=== PATIENT | male | born 1945 | race Caucasian/White ===

== ENCOUNTER → 2018-08-05 | Outpatient (CLI) | payer MEDICARE | LOC: RADMRIMAIN 14:52 | PROVIDERS: ATTEND Orthopaedic Surgery | DX: Z53.9 Procedure and treatment not carried out, unspecified reason (principal) ==

== ENCOUNTER → 2020-05-09 | Outpatient (CLI) | payer MEDICARE ==
[2020-05-09 19:19] LABS: Chol/HDL Ratio 3.23
[2020-05-09 23:57] LABS: Microalbumin Creatinine Ratio <30 mg/g Creat (0-30); Urine Creatinine 79.5 mg/dL
== END | disposition home or self-care (01) ==
LOC: LABWHC1 14:08
PROVIDERS: ATTEND Internal Medicine
DX: E11.65 Type 2 diabetes mellitus with hyperglycemia (principal); E03.9 Hypothyroidism, unspecified; E55.9 Vitamin D deficiency, unspecified
CPT/HCPCS: 36415; 80061; 82043; 82306; 82570; 83036; 84439; 84443

== ENCOUNTER 2022-07-01 09:07 | Emergency (ER) | payer MEDICARE ==
[2022-07-01 09:21] VITALS: RESP 18; TEMP 97.8
[2022-07-01] MEDS ORDERED: HYDROcodone/APAP 5-325MG 1 EACH TAB PO STA (09:33)
--- NOTE | 2022-07-01 10:31 | XR ---
EXAMINATION TYPE: XR femur LT DATE OF EXAM: 07/01/2022 COMPARISON: NONE HISTORY: Pain TECHNIQUE: 4 views submitted FINDINGS: Mild axial narrowing of the joint space. There is a moderate to severe arthropathy of the k nee joint with hypertrophic spurring. Vascular calcifications are seen. Osseous structures are intact with no definite acute fracture spurring involving the anterior and upper portions of the patella no barbara. Severe arthropathy patellofemoral joint. Small soft tissue calcification along the distal metaph ysis of the medial margin of the femur. IMPRESSION: 1. Arthropathy with no acute fracture.
--- NOTE | 2022-07-01 10:32 | XR ---
EXAMINATION TYPE: XR tibia fibula LT DATE OF EXAM: 07/01/2022 COMPARISON: NONE HISTORY: Pain TECHNIQUE: Two views are submitted. FINDINGS: The osseous structures are intact. There is narrowing of the patellofemoral joint hypertrophic spurri ng narrowing the medial and lateral compartments knee joint. Vascular calcification seen with no defi nite acute fracture or dislocation. Soft tissue calcifications spurs are seen. IMPRESSION: 1. No acute osseous abnormality.
--- NOTE | 2022-07-01 11:06 | XR ---
EXAMINATION TYPE: XR ankle complete RT DATE OF EXAM: 07/01/2022 COMPARISON: NONE HISTORY: Pain FINDINGS: Three views of the ankle demonstrate the ankle mortise to be intact and symmetric. The joint spaces are preserved. The osseous structures are intact. Calcaneal spurs are noted. Vascular calcification s seen. IMPRESSION: 1. No definite acute fracture or dislocation, if symptoms persist follow-up study in 7 to 10 days wou ld be suggested.
[2022-07-01] MEDS ORDERED: ACET/COD 300 MG/30 MG STARTER PACK 6 TAB BTL PO STA (11:45)
--- NOTE | 2022-07-01 11:47 | ED ---
Fall HPI - General Chief Complaint: Fall Stated Complaint: lt leg injury Time Seen by Provider: 07/01/22 09:22 Source: patient, RN notes reviewed Mode of arrival: ambulatory Limitations: no limitations - History of Present Illness Initial Comments: 77-year-old male presented from for fall, injury. Patient states he was putting up table at cafeteria slid out striking his right leg causing abrasion he complains more of left leg pain, pain from twisting. Patient states he has pain with movement is better at rest. Patient denies any obvious injuries doesn't smoke abrasion to the left knee no head injury no loss conscious. - Related Data Home Medications Medication Instructions Recorded Confirmed Atorvastatin [Lipitor] 40 mg PO HS 07/01/22 07/01/22 Cyanocobalamin (Vitamin B-12) 1,000 mcg PO DAILY 07/01/22 07/01/22 [Vitamin B-12] Empagliflozin [Jardiance] 25 mg PO DAILY 07/01/22 07/01/22 Enalapril [Vasotec] 5 mg PO BID 07/01/22 07/01/22 Insulin Glargine/Lixisenatide 33 units SQ DAILY 07/01/22 07/01/22 [Soliqua 100 Unit-33 Mcg/ml Pen] Insulin Lispro [humaLOG Kwikpen] 10 unit SQ AC-TID 07/01/22 07/01/22 Insulin Lispro [humaLOG Kwikpen] See Protocol SQ AC-TID 07/01/22 07/01/22 Levothyroxine Sodium [Synthroid] 75 mcg PO AC-BRKFST 07/01/22 07/01/22 Montelukast [Singulair] 10 mg PO HS 07/01/22 07/01/22 Pregabalin [Lyrica] 50 mg PO HS 07/01/22 07/01/22 Topiramate [Topamax] 100 mg PO BID 07/01/22 07/01/22 Ubidecarenone [Co Q-10] 300 mg PO DAILY 07/01/22 07/01/22 metFORMIN HCL [Glucophage] 500 mg PO BID 07/01/22 07/01/22 Allergies Allergy/AdvReac Type Severity Reaction Status Date / Time No Known Allergies Allergy Verified 07/01/22 11:38 Review of Systems ROS Statement: Those systems with pertinent positive or pertinent negative responses have been documented in the HPI. ROS Other: All systems not noted in ROS Statement are negative. Past Medical History Past Medical History: Diabetes Mellitus, Hyperlipidemia, Hypertension Past Surgical History: No Surgical Hx Reported Past Psychological History: No Psychological Hx Reported Smoking Status: Never smoker Past Alcohol Use History: None Reported Past Drug Use History: None Reported General Exam Limitations: no limitations General appearance: alert, in no apparent distress Head exam: Present: atraumatic, normocephalic, normal inspection Neck exam: Present: normal inspection, full ROM. Absent: tenderness, meningismus, lymphadenopathy Respiratory exam: Present: normal lung sounds bilaterally. Absent: respiratory distress, wheezes, rales, rhonchi, stridor Cardiovascular Exam: Present: regular rate, normal rhythm, normal heart sounds. Absent: systolic murmur, diastolic murmur, rubs, gallop, clicks Extremities exam: Present: other (Right leg abrasion over the tib-fib region, right ankle swelling and tenderness, left leg tenderness diffusely with abrasion to the left knee pedal pulses including posterior tibialis and dorsal pedis within normal limits and equal bilaterally) Neurological exam: Present: alert, oriented X3, CN II-XII intact, reflexes normal. Absent: motor sensory deficit Skin exam: Present: warm, dry, intact, normal color. Absent: rash Course Vital Signs 07/01/22 09:17 Temperature 97.8 F Pulse Rate 62 Respiratory 18 Rate Blood Pressure 136/67 O2 Sat by Pulse 99 Oximetry Medical Decision Making - Medical Decision Making 77-year-old male presented for complaints of a fall. Patient has a notable abrasion to the right leg tetanus is up-to-date patient x-ray of the right ankle is negative for acute fracture x-ray was obtained of the left femur, tib-fib with no acute abnormality. 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 Patient we discharged with follow-up with orthopedics return parameters were discussed Disposition Clinical Impression: Fall, Abrasion, right lower leg, initial encounter, Right ankle sprain, Left leg pain, Sprain of left knee/leg Disposition: HOME SELF-CARE Condition: Stable Instructions (If sedation given, give patient instructions): Leg Sprain (ED) Additional Instructions: Please return to the Emergency Department if symptoms worsen or any other concerns. Is patient prescribed a controlled substance at d/c from ED?: No Referrals: Jean Claude Lemons MD [Primary Care Provider] - 1-2 days Forrest Ya MD [Medical Doctor] - 1-2 days Time of Disposition: 11:45
[2022-07-01 12:02] VITALS: BP 148/66; PULSE 59
== END 2022-07-01 12:00 | disposition home or self-care (01) ==
LOC: EC 09:07
DX: S93.401A Sprain of unspecified ligament of right ankle, initial encounter (principal); S83.92XA Sprain of unspecified site of left knee, initial encounter; S80.811A Abrasion, right lower leg, initial encounter; E78.5 Hyperlipidemia, unspecified; I10 Essential (primary) hypertension; E11.9 Type 2 diabetes mellitus without complications; Z79.84 Long term (current) use of oral hypoglycemic drugs; Z79.4 Long term (current) use of insulin; Z79.899 Other long term (current) drug therapy; X50.0XXA Overexertion from strenuous movement or load, initial encounter
CPT/HCPCS: 99284

== ENCOUNTER 2025-03-24 11:56 | Emergency (ER) | payer MEDICARE ==
--- NOTE | 2025-03-24 12:19 | ED ---
General Adult HPI - General Chief complaint: Extremity Problem,Nontraumatic Stated complaint: Left Leg Lump Time Seen by Provider: 03/24/25 12:04 Source: patient, RN notes reviewed Mode of arrival: ambulatory Limitations: no limitations - History of Present Illness Initial comments: Patient is a 80-year-old male present to the emergency department with concerns for left leg swelling. Onset of symptoms was this morning. No pain. No redness. No fever. Area of involvement is left mid to anterior lower leg. No posterior pain. No chest pain or dyspnea. No history of similar symptoms previously. Patient did go to urgent care and was sent here for ultrasound. Patient also states he stubbed his left second toe a week ago and still has some pain and swelling there. - Related Data Home Medications Medication Instructions Recorded Confirmed Atorvastatin [Lipitor] 40 mg PO HS 07/01/22 07/01/22 Cyanocobalamin (Vitamin B-12) 1,000 mcg PO DAILY 07/01/22 07/01/22 [Vitamin B-12] Empagliflozin [Jardiance] 25 mg PO DAILY 07/01/22 07/01/22 Enalapril [Vasotec] 5 mg PO BID 07/01/22 07/01/22 Insulin Glargine/Lixisenatide 33 units SQ DAILY 07/01/22 07/01/22 [Soliqua 100 Unit-33 Mcg/ml Pen] Insulin Lispro [humaLOG Kwikpen] 10 unit SQ AC-TID 07/01/22 07/01/22 Insulin Lispro [humaLOG Kwikpen] See Protocol SQ AC-TID 07/01/22 07/01/22 Levothyroxine Sodium [Synthroid] 75 mcg PO AC-BRKFST 07/01/22 07/01/22 Montelukast [Singulair] 10 mg PO HS 07/01/22 07/01/22 Pregabalin [Lyrica] 50 mg PO HS 07/01/22 07/01/22 Topiramate [Topamax] 100 mg PO BID 07/01/22 07/01/22 Ubidecarenone [Co Q-10] 300 mg PO DAILY 07/01/22 07/01/22 metFORMIN HCL [Glucophage] 500 mg PO BID 07/01/22 07/01/22 Previous Rx's Medication Instructions Recorded Acetaminophen-Codeine 300-30mg 1 tab PO Q4H PRN #12 tablet 07/01/22 [Tylenol #3] Sulfamethox-Tmp 800-160Mg [Bactrim 2 each PO Q12HR #40 tab 03/24/25 DS 800-160 mg] Allergies Allergy/AdvReac Type Severity Reaction Status Date / Time No Known Allergies Allergy Verified 03/24/25 12:00 Review of Systems ROS Statement: Those systems with pertinent positive or pertinent negative responses have been documented in the HPI. ROS Other: All systems not noted in ROS Statement are negative. Constitutional: Denies: fever Eyes: Denies: eye pain ENT: Denies: ear pain Respiratory: Denies: cough, dyspnea Cardiovascular: Denies: chest pain Past Medical History Past Medical History: Diabetes Mellitus, Hyperlipidemia, Hypertension History of Any Multi-Drug Resistant Organisms: None Reported Past Surgical History: No Surgical Hx Reported Past Psychological History: No Psychological Hx Reported Smoking Status: Never smoker Past Alcohol Use History: None Reported Past Drug Use History: None Reported General Exam Limitations: no limitations General appearance: alert, in no apparent distress Head exam: Present: normocephalic Neck exam: Present: normal inspection Respiratory exam: Present: normal lung sounds bilaterally Cardiovascular Exam: Present: regular rate, normal rhythm Expanded Peripheral pulses: 2+: Posterior Tibialis (L), Dorsalis Pedis (L) GI/Abdominal exam: Present: soft. Absent: tenderness Extremities exam: Present: other (Left anterior/medial mid lower leg with mild swelling). Absent: calf tenderness Neurological exam: Present: alert Psychiatric exam: Present: normal affect, normal mood Skin exam: Present: normal color. Absent: erythema Course Vital Signs 03/24/25 03/24/25 11:58 13:18 Temperature 97.5 F L Pulse Rate 57 L 55 L Respiratory 20 16 Rate Blood Pressure 150/63 136/70 O2 Sat by Pulse 99 98 Oximetry Medical Decision Making - Medical Decision Making Was pt. sent in by a medical professional or institution (, PA, HISTOLOGICAL ILLUSTRATOR, urgent care, hospital, or detention...) When possible be specific @ -Patient sent from urgent care Did you speak to anyone other than the patient for history (EMS, parent, family, police, friend...)? What history was obtained from this source @ -No Did you review nursing and triage notes (agree or disagree)? Why? @ -I reviewed and agree with nursing and triage notes Were old charts reviewed (outside hosp., previous admission, EMS record, old EKG, old radiological studies, urgent care reports/EKG's, detention records)? Report findings @ -No old charts were reviewed Differential Diagnosis (chest pain, altered mental status, abdominal pain women, abdominal pain men, vaginal bleeding, weakness, fever, dyspnea, syncope, headache, dizziness, GI bleed, back pain, seizure, CVA, palpatations, mental health, musculoskeletal)? @ -Differential Musculoskeletal Muscular strain, contusion, ligament sprain, fracture, arthritis, septic arthritis, bursitis, cellulitis, muscle spasm, nerve compression, DVT, arterial occlusion, herpes zoster, electrolyte abnormality, tumor.... This is not meant to be in all inclusive list EKG interpreted by me (3pts min.). @ -As above X-rays interpreted by me (1pt min.). @ -X-ray shows small foreign body proximal to the first plantar MTP. No evid ence of fracture CT interpreted by me (1pt min.). @ -None done U/S interpreted by me (1pt. min.). @ -Ultrasound without evidence of DVT. Nonvascular hypoechoic area What testing was considered but not performed or refused? (CT, X-rays, U/S, labs)? Why? @ -None What meds were considered but not given or refused? Why? @ -None Did you discuss the management of the patient with other professionals (professionals i.e. , PA, HISTOLOGICAL ILLUSTRATOR, lab, RT, psych nurse, health social work professor, vp treasurer, teacher, county health officer, case aide)? Give summary @ -No Was smoking cessation discussed for >3mins.? @ -No Was critical care preformed (if so, how long)? @ -No Were there social determinants of health that impacted care today? How? (Homelessness, low income, unemployed, alcoholism, drug addiction, transportation, low edu. Level, literacy, decrease access to med. care, group home, rehab)? @ -No Was there de-escalation of care discussed even if they declined (Discuss DNR or withdrawal of care, Hospice)? DNR status @ -No What co-morbidities impacted this encounter? (DM, HTN, Smoking, COPD, CAD, Cancer, CVA, ARF, Chemo, Hep., AIDS, mental health diagnosis, sleep apnea, morbid obesity)? @ -Diabetes Was patient admitted / discharged? Hospital course, mention meds given and route, prescriptions, significant lab abnormalities, going to OR and other pertinent info. @ -Patient presents with concern for DVT. Ultrasound negative for DVT however shows nonvascular hypoechoic area. X-ray unremarkable for fracture. Foreign body is likely old as reevaluation shows no evidence of any recent trauma. Patient does not recall any recent trauma. There is some concern that patient could have early infection with the swelling at the second toe and new nodule mid leg. Patient would like to start antibiotics and shared decision making was to do this. Patient recommended close follow-up with his doctor and to return if any worsening symptoms. Patient is made aware of concern of potential worsening problems, specifically concern for very early infection. Undiagnosed new problem with uncertain prognosis? @ -No Drug Therapy requiring intensive monitoring for toxicity (Heparin, Nitro, Insulin, Cardizem)? @ -No Were any procedures done? @ -No Diagnosis/symptom? @ -Leg swelling Acute, or Chronic, or Acute on Chronic? @ -Acute Uncomplicated (without systemic symptoms) or Complicated (systemic symptoms)? @ -Default Side effects of treatment? @ -No Exacerbation, Progression, or Severe Exacerbation? @ -No Poses a threat to life or bodily function? How? (Chest pain, [place], [place], pneumonia, PE, COPD, DKA, ARF, appy, cholecystitis, CVA, Diverticulitis, Homicidal, Suicidal, threat to staff... and all critical care pts) @ -No Disposition Clinical Impression: Leg swelling Disposition: HOME SELF-CARE Condition: Stable Instructions (If sedation given, give patient instructions): Leg Edema (ED) Additional Instructions: Prescription sent to pharmacy. Please do follow-up with your primary care physician in the next day or 2 for recheck. Return for fever, redness, pain, increased swelling, worsening or changing symptoms or other concerns. Prescriptions: Sulfamethox-Tmp 800-160Mg [Bactrim DS 800-160 mg] 2 each PO Q12HR #40 tab Is patient prescribed a controlled substance at d/c from ED?: No Referrals: Jean Claude Lemons [Primary Care Provider] - 1-2 days Time of Disposition: 13:41
--- NOTE | 2025-03-24 13:12 | US ---
EXAMINATION TYPE: US venous doppler duplex LE LT DATE OF EXAM: 03/24/2025 12:49 PM COMPARISON: NONE CLINICAL INDICATION: Male, 80 years old with history of pain; Lump left calf, Pain TECHNIQUE: The lower extremity deep venous system is examined utilizing real time linear array sonog juliana with graded compression, color doppler sonography, and spectral doppler. SIDE PERFORMED: Left FINDINGS: VESSELS IMAGED: Common Femoral Vein Deep Femoral Vein Greater Saphenous Vein * Femoral Vein Popliteal Vein Small Saphenous Vein * Proximal Calf Veins (* superficial vessels) Left Leg: Negative for DVT, Color Doppler imaging shows patency of the vessels. Spectral waveforms a re within normal limits. Lump seen on calf non compressing. This is hypoechoic with internal echoes may be septation IMPRESSION: No ultrasound evidence of left lower extremity deep venous thrombosis. Superficial area of concern with a complex hypoechoic area does not appear vascular. [facility], , 03/24/2025 1:09 PM
--- NOTE | 2025-03-24 13:13 | XR ---
EXAMINATION TYPE: XR foot complete LT DATE OF EXAM: 03/24/2025 12:54 PM COMPARISON: None. CLINICAL INDICATION: Male, 80 years old with history of pain, pain TECHNIQUE: 3 view(s) obtained. FINDINGS: No acute fracture or dislocation evident. Structures are osteopenic. Joint spaces appear preserved. S oft tissues appear normal. Some hallux valgus deformity may be present There is a radiopaque foreign body at the level of the distal portion proximal phalanx first digit al fili the plantar surface soft tissues. There is a plantar calcaneal heel spur present IMPRESSION: 1. No acute osseous abnormality. 2. Radiopaque foreign body plantar soft tissues below the first digit phalanx. 3. Plantar calcaneal heel spur [facility], , 03/24/2025 1:11 PM
[2025-03-24 14:15] VITALS: BP 107/65; PULSE 60; RESP 17; TEMP 97.7
== END 2025-03-24 14:15 | disposition home or self-care (01) ==
LOC: EC 11:56
DX: M79.89 Other specified soft tissue disorders (principal); E11.9 Type 2 diabetes mellitus without complications
CPT/HCPCS: 99284